=== PATIENT | female | born 1990 | race African-American/Black ===

== ENCOUNTER 2018-10-29 09:26 | Emergency (ER) | payer MEDICAID, OTHER ==
[~2018-10-29] VITALS: Ht 162.6 cm; Wt 49.9 kg
[2018-10-29 09:49] LABS: BASOPHILS % (AUTO) 0.7 % (0.0-2.0); EOSINOPHILS % (AUTO) 1.3 % (0.0-6.0); HEMATOCRIT 38 % (33-45); HEMOGLOBIN 12.6 g/dL (11.5-14.8); LYMPHOCYTES # (AUTO) 1.5 /CMM (0.8-4.8); LYMPHOCYTES % (AUTO) 22.6 % (20.0-44.0); MEAN CORPUSCULAR HGB CONC 33 g/dl (31.0-36.0); MEAN CORPUSCULAR VOLUME 97 fL (82-100); MONOCYTES # (AUTO) 0.3 /CMM (0.1-1.30); MONOCYTES % (AUTO) 5.3 % (2.0-12.0); NEUTROPHILS # (AUTO) 4.5 /CMM (1.8-8.9); NEUTROPHILS % (AUTO) 70.1 % (43.0-81.0); PLATELET COUNT (AUTO) 177 /CMM (150-450); RED BLOOD CELL COUNT(AUTO) 3.93 MIL/uL (4.0-5.2); WHITE BLOOD COUNT (AUTO) 6.4 K/uL (4.3-11.0)
--- NOTE | 2018-10-29 09:50 | NUR ---
[place] [facility] 60 [place] [facility] [place] by bystander-called 911 " PT IS AAOX4, NOT IN RESPIRATORY DISTRESS, V/S STABLE, KEPT RESTEDAND COMFORTABLE. SEEN AND EXAMINED BY DR. HUDSON
--- NOTE | 2018-10-29 09:53 | NUR ---
LABS DRAWNED AND SENT TO LAB. AWAITING RESULTS.
[2018-10-29] MEDS ORDERED: LEVETIRACETAM (500MG) 500 MG in IV NS 0.9% 100 ML IV ONE (10:00)
[2018-10-29 10:04] LABS: CALCIUM, SERUM 8.4 mg/dL (8.5-10.1); CREATININE 0.8 mg/dL (0.6-1.3); POTASSIUM 3.8 mmol/L (3.5-5.1)
--- NOTE | 2018-10-29 11:17 | NUR ---
IV removed. Catheter intact and site benign. Pressure and 4x4 applied to site. No bleeding noted. Patient discharged to home in stable condition. Written and verbal after care instructions given. Patient verbalizes understanding of instruction.
[2018-10-29 11:22] VITALS: BP 109/68
== END 2018-10-29 11:23 | disposition home or self-care (01) ==
LOC: ER 09:32
DX: R56.9 Unspecified convulsions (principal)
CPT/HCPCS: 36415; 80048; 84702; 85025; 96365; 99283; A4606; J1953; J7030; Z7610